=== PATIENT | female | born 1960 | race Two or more races ===

== ENCOUNTER 2017-10-08 12:04 | Emergency (ER) | payer SELFPAY ==
[~2017-10-08] VITALS: Ht 162.6 cm; Wt 74.8 kg
--- NOTE | 2017-10-08 12:22 | NUR ---
pt to ed room 14. etoh intoxicated from street. bbra. nad. vs wnl. side rails up. hob elevated. connected to monit. awaiting for md adame.
[2017-10-08 12:59] LABS: BASOPHILS % (AUTO) 0.8 % (0.0-2.0); EOSINOPHILS % (AUTO) 3.8 % (0.0-6.0); HEMATOCRIT 38 % (33-45); HEMOGLOBIN 12.6 g/dL (11.5-14.8); LYMPHOCYTES # (AUTO) 2.1 /CMM (0.8-4.8); LYMPHOCYTES % (AUTO) 36.6 % (20.0-44.0); MEAN CORPUSCULAR HGB CONC 34 g/dl (31.0-36.0); MEAN CORPUSCULAR VOLUME 86 fL (82-100); MONOCYTES # (AUTO) 0.4 /CMM (0.1-1.30); MONOCYTES % (AUTO) 6.7 % (2.0-12.0); NEUTROPHILS # (AUTO) 3.1 /CMM (1.8-8.9); NEUTROPHILS % (AUTO) 52.1 % (43.0-81.0); PLATELET COUNT (AUTO) 302 /CMM (150-450); RDW COEFFICIENT OF VARIATION 14.5 (11.5-15.0); RED BLOOD CELL COUNT(AUTO) 4.35 MIL/uL (4.0-5.2); WHITE BLOOD COUNT (AUTO) 5.8 K/uL (4.3-11.0)
[2017-10-08] MEDS ORDERED: IV NS 0.9% 1,000 ML BAG IV ONE (13:00)
[2017-10-08 13:10] LABS: CARBON DIOXIDE 30 mmol/L (21-32); CHLORIDE 105 mmol/L (98-107); CREATININE 0.6 mg/dL (0.6-1.3); GLUCOSE 84 mg/dL (74-106); POTASSIUM 3.5 mmol/L (3.5-5.1); SODIUM SERUM 141 mmol/L (136-145); UREA NITROGEN, BLOOD 15 mg/dL (7-18)
--- NOTE | 2017-10-08 13:10 | NUR ---
pt unable to provide with urine sample at this time, will try again soon
[2017-10-08 13:16] LABS: ALANINE AMINOTRANSFERASE 24 U/L (12-78); ALBUMIN 3.4 g/dL (3.4-5.0); ALKALINE PHOSPHATASE 82 U/L (46-116); ASPARTATE AMINOTRANSFERASE 17 U/L (15-37); BILIRUBIN,DIRECT 0.1 mg/dL (0.0-0.2); BILIRUBIN,TOTAL 0.4 mg/dL (0.2-1.0); TOTAL PROTEIN, SERUM 7.8 g/dL (6.4-8.2)
[2017-10-08 13:17] LABS: ACETAMINOPHEN < 2 ug/ml (10-30); ALCOHOL, BLOOD < 3 mg/dL (0-0); SALICYLATE 1.6 mg/dL (2.8-20.0)
--- NOTE | 2017-10-08 14:00 | NUR ---
Patient is resting comfortably in bed with eyes closed. Easily aroused. VSS
--- NOTE | 2017-10-08 14:13 | NUR ---
pt refuses to provide urine sample
--- NOTE | 2017-10-08 14:29 | NUR ---
IV removed. Catheter intact and site benign. Pressure and 4x4 applied to site. No bleeding noted.
--- NOTE | 2017-10-08 14:36 | NUR ---
Called [employer] Elsi and she gave an ETA of 1 hour to arrive.
[2017-10-08] MEDS ORDERED: OLANZAPINE 10 MG VIAL IM ONE ×2 (15:30→15:44)
--- NOTE | 2017-10-08 15:37 | NUR ---
PINKY AT BEDSIDE FOR PSYCHE EVAL
[2017-10-08] MEDS ORDERED: OLANZAPINE 5 MG/TAB.RAPDIS ONE (15:50)
[2017-10-08] MEDS ORDERED: OLANZAPINE 5 MG TABLET ONE (15:51)
[2017-10-08] MEDS ORDERED: OLANZAPINE 5 MG/TAB.RAPDIS PO ONE (16:00)
--- NOTE | 2017-10-08 16:07 | NUR ---
PT REFUSED TO PROVIDE URINE SAMPLE
--- NOTE | 2017-10-08 16:54 | NUR ---
Patient is resting comfortably in bed with eyes closed. Easily aroused. VSS
--- NOTE | 2017-10-08 19:06 | NUR ---
REPORT RECEIVED FROM SHLOMO BLACK FOR [facility].
--- NOTE | 2017-10-08 22:00 | NUR ---
PT RESTING QUIETLY, VSS. WILL CONTINUE TO MONITOR, PROVIDING SAFETY AND COMFORT MEASURES.
--- NOTE | 2017-10-09 00:23 | NUR ---
PT RESTING QUIETLY, VSS. WILL CONTINUE TO MONITOR, PROVIDING SAFETY AND COMFORT MEASURES.
--- NOTE | 2017-10-09 02:49 | NUR ---
PT RESTING QUIETLY, VSS. WILL CONTINUE TO MONITOR, PROVIDING SAFETY AND COMFORT MEASURES.
--- NOTE | 2017-10-09 05:44 | NUR ---
PT ALERT, AMBULATORY TO THE RESTROOM WITH STEADY GAIT. VSS.
--- NOTE | 2017-10-09 07:02 | NUR ---
Patient discharged with family to home in stable condition. Written and verbal after care instructions given. Patient verbalizes understanding of instruction. Patient ambulatory with a steady gait.
[2017-10-09 07:06] VITALS: BP 123/74
== END 2017-10-09 07:09 | disposition home or self-care (01) ==
LOC: ER 12:08
DX: F29 Unspecified psychosis not due to a substance or known physiological condition (principal); Z59.0 Homelessness
CPT/HCPCS: 36415; 70450; 80048; 80076; 80329; 85025; 96360; 99285; A4606; G0480 ×2; J3490; J7030; Z7610